=== PATIENT | female | born 1945 | race Caucasian/White ===

== ENCOUNTER 2018-05-26 14:55 | Inpatient (IN) | payer OTHER ==
[~2018-05-26] VITALS: Ht 152.4 cm; Wt 54.2 kg
[~2018-05-26 14:55] MED LIST: ALBU90OI6 INH; ASPI81EC PO; BENTYL20 MG PO; DICY20; FLUO20; FLUO20 PO; FLUO90 PO; HYDCOR2.5C PR; IBUP800 PO; PRED20 PO
[2018-05-26 15:59] LABS: BASOPHILS ABSOLUTE AUTO 0.02 K/mm3 (0.00-0.23); BASOPHILS PERCENT AUTO 0 % (0-2); EOSINOPHILS ABSOLUTE AUTO 0.04 K/mm3 (0.00-0.68); EOSINOPHILS PERCENT AUTO 0 % (0-6); Hematocrit 37.7 % (33.0-51.0); Hemoglobin 12.4 g/dL (11.5-16.0); IMMATURE GRAN ABSOLUTE AUTO 0.03 K/mm3 (0.00-0.10); IMMATURE GRAN PERCENT AUTO 0 % (0-1); LYMPHOCYTES ABSOLUTE AUTO 1.28 K/mm3 (0.84-5.20); LYMPHOCYTES PERCENT AUTO 13 % (21-46); MONOCYTES ABSOLUTE AUTO 0.81 K/mm3 (0.16-1.47); MONOCYTES PERCENT AUTO 8 % (4-13); Mean Corpuscular HGB Conc 32.9 g/dL (31.5-36.5); Mean Corpuscular Volume 88 fL (80-100); Mean Platelet Volume 11.3 fL (9.1-12.4); NEUTROPHILS ABSOLUTE AUTO 7.72 K/mm3 (1.96-9.15); NEUTROPHILS PERCENT AUTO 78 % (41-73); Platelet Count 308 K/mm3 (150-400); RDW Coefficient Variation 15.7 % (11.7-14.2); Red Blood Cell Count 4.27 M/mm3 (3.80-5.20)
[2018-05-26 16:18] LABS: Alanine Aminotransfer (ALT/SGP 17 U/L (12-78); Albumin, Blood 3.1 g/dL (3.4-5.0); Albumin/Globulin Ratio 0.8 (0.8-1.8); Alk Phos 105 U/L (50-136); Anion Gap 10 mmol/L (6-16); Aspartate Aminotrans (AST/SGOT 13 U/L (12-37); Bilirubin, Total 0.6 mg/dL (0.1-1.0); Blood Urea Nitrogen 12 mg/dL (8-24); Bun/Creatinine Ratio 19.9 (12.0-20.0); CO2, Blood 24 mmol/L (21-32); Calcium, Blood 8.4 mg/dL (8.5-10.1); Chloride, Blood 101 mmol/L (98-108); Globulin, Blood 3.8 g/dL (2.2-4.0); Glomerular Filtration Rate >60 (60-); Glucose, Blood 125 mg/dL (70-99); Potassium, Blood 3.1 mmol/L (3.5-5.5); Sodium, Blood 135 mmol/L (136-145); Total Protein, Blood 6.9 g/dL (6.4-8.2)
[2018-05-26] MEDS ORDERED: Protonix40 MG PO (17:16)
[2018-05-26] MEDS ORDERED: Dicyclomine HCl10 MG PO (17:16)
[2018-05-26] MEDS ORDERED: VARE1 PO (21:45)
[2018-05-26] MEDS ORDERED: BUPR75 PO (21:47)
[2018-05-27 04:38] LABS: BASOPHILS ABSOLUTE AUTO 0.02 K/mm3 (0.00-0.23); BASOPHILS PERCENT AUTO 0 % (0-2); EOSINOPHILS ABSOLUTE AUTO 0.07 K/mm3 (0.00-0.68); EOSINOPHILS PERCENT AUTO 1 % (0-6); Hematocrit 35.2 % (33.0-51.0); Hemoglobin 11.5 g/dL (11.5-16.0); IMMATURE GRAN ABSOLUTE AUTO 0.02 K/mm3 (0.00-0.10); IMMATURE GRAN PERCENT AUTO 0 % (0-1); LYMPHOCYTES PERCENT AUTO 19 % (21-46); MONOCYTES ABSOLUTE AUTO 0.88 K/mm3 (0.16-1.47); MONOCYTES PERCENT AUTO 11 % (4-13); Mean Corpuscular HGB 28.9 pg (26.0-34.0); Mean Corpuscular HGB Conc 32.7 g/dL (31.5-36.5); Mean Corpuscular Volume 88 fL (80-100); Mean Platelet Volume 11.3 fL (9.1-12.4); NEUTROPHILS ABSOLUTE AUTO 5.35 K/mm3 (1.96-9.15); NEUTROPHILS PERCENT AUTO 68 % (41-73); Platelet Count 270 K/mm3 (150-400); RDW Coefficient Variation 15.7 % (11.7-14.2); RDW Standard Deviation 51.2 fL (35.1-46.3); Red Blood Cell Count 3.98 M/mm3 (3.80-5.20); White Blood Cell Count 7.84 K/mm3 (4.00-11.30)
[2018-05-27 05:02] LABS: Anion Gap 8 mmol/L (6-16); Blood Urea Nitrogen 7 mg/dL (8-24); CO2, Blood 26 mmol/L (21-32); Calcium, Blood 7.8 mg/dL (8.5-10.1); Chloride, Blood 108 mmol/L (98-108); Creatinine, Blood 0.54 mg/dL (0.40-1.00); Glomerular Filtration Rate >60 (60-); Glucose, Blood 86 mg/dL (70-99); Potassium, Blood 3.4 mmol/L (3.5-5.5); Sodium, Blood 142 mmol/L (136-145)
[2018-05-27 08:24] LABS: Adenovirus F 40/41 Not Detected (NOT DETECT); Astrovirus Not Detected (NOT DETECT); Campylobacter Sp Not Detected (NOT DETECT); Cryptosporidium Not Detected (NOT DETECT); Cyclospora Cayetanensis Not Detected (NOT DETECT); E. Coli O157 Not Detected (NOT DETECT); Entamoeba Histolytica Not Detected (NOT DETECT); Enteroaggregative E. coli-EAEC Not Detected (NOT DETECT); Enteropathogenic E. coli-EPEC Not Detected (NOT DETECT); Enterotoxigenic E. coli-ETEC Not Detected (NOT DETECT); Giardia Lamblia Not Detected (NOT DETECT); Norovirus GI/GII Not Detected (NOT DETECT); Plesiomonas Shigelloides Not Detected (NOT DETECT); Rotavirus A Not Detected (NOT DETECT); Salmonella Sp Not Detected (NOT DETECT); Sapovirus Not Detected (NOT DETECT); Shiga Toxin-prod E. coli-STEC Not Detected (NOT DETECT); Shigella/Enteroin E. coli-EIEC Not Detected (NOT DETECT); Vibrio Cholerae Not Detected (NOT DETECT); Vibrio Sp Not Detected (NOT DETECT); Yersinia Enterocolitica Not Detected (NOT DETECT)
[2018-05-28 04:59] LABS: BASOPHILS ABSOLUTE AUTO 0.02 K/mm3 (0.00-0.23); BASOPHILS PERCENT AUTO 0 % (0-2); EOSINOPHILS ABSOLUTE AUTO 0.01 K/mm3 (0.00-0.68); EOSINOPHILS PERCENT AUTO 0 % (0-6); Hematocrit 35.4 % (33.0-51.0); Hemoglobin 11.5 g/dL (11.5-16.0); IMMATURE GRAN ABSOLUTE AUTO 0.06 K/mm3 (0.00-0.10); IMMATURE GRAN PERCENT AUTO 0 % (0-1); LYMPHOCYTES ABSOLUTE AUTO 1.95 K/mm3 (0.84-5.20); LYMPHOCYTES PERCENT AUTO 14 % (21-46); MONOCYTES ABSOLUTE AUTO 1.24 K/mm3 (0.16-1.47); MONOCYTES PERCENT AUTO 9 % (4-13); Mean Corpuscular HGB Conc 32.5 g/dL (31.5-36.5); Mean Corpuscular Volume 89 fL (80-100); Mean Platelet Volume 11.3 fL (9.1-12.4); NEUTROPHILS ABSOLUTE AUTO 10.73 K/mm3 (1.96-9.15); NEUTROPHILS PERCENT AUTO 77 % (41-73); Platelet Count 296 K/mm3 (150-400); RDW Coefficient Variation 15.8 % (11.7-14.2); RDW Standard Deviation 52.1 fL (35.1-46.3); Red Blood Cell Count 3.96 M/mm3 (3.80-5.20); White Blood Cell Count 14.01 K/mm3 (4.00-11.30)
[2018-05-28 05:15] LABS: Albumin, Blood 2.6 g/dL (3.4-5.0); Anion Gap 13 mmol/L (6-16); Blood Urea Nitrogen 6 mg/dL (8-24); Bun/Creatinine Ratio 11.3 (12.0-20.0); CO2, Blood 20 mmol/L (21-32); Calcium, Blood 7.6 mg/dL (8.5-10.1); Chloride, Blood 107 mmol/L (98-108); Creatinine, Blood 0.53 mg/dL (0.40-1.00); Glomerular Filtration Rate >60 (60-); Glucose, Blood 87 mg/dL (70-99); Phosphorus, Blood 2.5 mg/dL (2.5-4.9); Potassium, Blood 3.7 mmol/L (3.5-5.5); Sodium, Blood 140 mmol/L (136-145)
[2018-05-29 05:30] LABS: BASOPHILS ABSOLUTE AUTO 0.03 K/mm3 (0.00-0.23); BASOPHILS PERCENT AUTO 0 % (0-2); EOSINOPHILS ABSOLUTE AUTO 0.06 K/mm3 (0.00-0.68); EOSINOPHILS PERCENT AUTO 0 % (0-6); Hematocrit 34.2 % (33.0-51.0); Hemoglobin 11.3 g/dL (11.5-16.0); IMMATURE GRAN ABSOLUTE AUTO 0.09 K/mm3 (0.00-0.10); IMMATURE GRAN PERCENT AUTO 1 % (0-1); LYMPHOCYTES ABSOLUTE AUTO 1.69 K/mm3 (0.84-5.20); LYMPHOCYTES PERCENT AUTO 12 % (21-46); MONOCYTES ABSOLUTE AUTO 0.99 K/mm3 (0.16-1.47); MONOCYTES PERCENT AUTO 7 % (4-13); Mean Corpuscular HGB 29.5 pg (26.0-34.0); Mean Corpuscular Volume 89 fL (80-100); Mean Platelet Volume 11.4 fL (9.1-12.4); NEUTROPHILS ABSOLUTE AUTO 11.21 K/mm3 (1.96-9.15); NEUTROPHILS PERCENT AUTO 80 % (41-73); Platelet Count 296 K/mm3 (150-400); RDW Coefficient Variation 15.9 % (11.7-14.2); RDW Standard Deviation 52.1 fL (35.1-46.3); Red Blood Cell Count 3.83 M/mm3 (3.80-5.20); White Blood Cell Count 14.07 K/mm3 (4.00-11.30)
[2018-05-29 05:42] LABS: Albumin, Blood 2.4 g/dL (3.4-5.0); Anion Gap 9 mmol/L (6-16); Blood Urea Nitrogen 4 mg/dL (8-24); Bun/Creatinine Ratio 7.9 (12.0-20.0); CO2, Blood 23 mmol/L (21-32); Calcium, Blood 7.6 mg/dL (8.5-10.1); Chloride, Blood 107 mmol/L (98-108); Creatinine, Blood 0.51 mg/dL (0.40-1.00); Glomerular Filtration Rate >60 (60-); Glucose, Blood 85 mg/dL (70-99); Phosphorus, Blood 1.5 mg/dL (2.5-4.9); Potassium, Blood 3.6 mmol/L (3.5-5.5); Sodium, Blood 139 mmol/L (136-145)
[2018-05-30 04:52] LABS: BASOPHILS ABSOLUTE AUTO 0.02 K/mm3 (0.00-0.23); BASOPHILS PERCENT AUTO 0 % (0-2); EOSINOPHILS ABSOLUTE AUTO 0.11 K/mm3 (0.00-0.68); EOSINOPHILS PERCENT AUTO 1 % (0-6); Hematocrit 32.6 % (33.0-51.0); Hemoglobin 10.9 g/dL (11.5-16.0); IMMATURE GRAN ABSOLUTE AUTO 0.08 K/mm3 (0.00-0.10); IMMATURE GRAN PERCENT AUTO 1 % (0-1); LYMPHOCYTES ABSOLUTE AUTO 1.49 K/mm3 (0.84-5.20); LYMPHOCYTES PERCENT AUTO 11 % (21-46); MONOCYTES ABSOLUTE AUTO 0.95 K/mm3 (0.16-1.47); MONOCYTES PERCENT AUTO 7 % (4-13); Mean Corpuscular HGB 29.5 pg (26.0-34.0); Mean Corpuscular HGB Conc 33.4 g/dL (31.5-36.5); Mean Corpuscular Volume 88 fL (80-100); Mean Platelet Volume 11.5 fL (9.1-12.4); NEUTROPHILS ABSOLUTE AUTO 10.37 K/mm3 (1.96-9.15); NEUTROPHILS PERCENT AUTO 80 % (41-73); Platelet Count 289 K/mm3 (150-400); RDW Coefficient Variation 15.9 % (11.7-14.2); RDW Standard Deviation 51.8 fL (35.1-46.3); Red Blood Cell Count 3.69 M/mm3 (3.80-5.20); White Blood Cell Count 13.02 K/mm3 (4.00-11.30)
[2018-05-30 05:08] LABS: Albumin, Blood 2.2 g/dL (3.4-5.0); Anion Gap 7 mmol/L (6-16); Blood Urea Nitrogen 4 mg/dL (8-24); Bun/Creatinine Ratio 8.1 (12.0-20.0); CO2, Blood 27 mmol/L (21-32); Calcium, Blood 7.4 mg/dL (8.5-10.1); Chloride, Blood 105 mmol/L (98-108); Creatinine, Blood 0.49 mg/dL (0.40-1.00); Glomerular Filtration Rate >60 (60-); Glucose, Blood 109 mg/dL (70-99); Phosphorus, Blood 2.4 mg/dL (2.5-4.9); Potassium, Blood 3.1 mmol/L (3.5-5.5); Sodium, Blood 139 mmol/L (136-145)
[2018-05-30 11:44] LABS: Percent Saturation 8.1 % (15.0-50.0)
[2018-05-30 12:07] LABS: HEPATITIS C QUANTITATION HCV Not Detected IU/mL (.)
[2018-05-30 13:47] LABS: Albumin, Blood 2.4 g/dL (3.4-5.0); Anion Gap 9 mmol/L (6-16); Blood Urea Nitrogen 2 mg/dL (8-24); Bun/Creatinine Ratio 4.4 (12.0-20.0); CO2, Blood 26 mmol/L (21-32); Calcium, Blood 7.6 mg/dL (8.5-10.1); Chloride, Blood 104 mmol/L (98-108); Creatinine, Blood 0.45 mg/dL (0.40-1.00); Glomerular Filtration Rate >60 (60-); Glucose, Blood 106 mg/dL (70-99); Phosphorus, Blood 2.3 mg/dL (2.5-4.9); Sodium, Blood 139 mmol/L (136-145)
[2018-05-31 05:16] LABS: BASOPHILS ABSOLUTE AUTO 0.02 K/mm3 (0.00-0.23); BASOPHILS PERCENT AUTO 0 % (0-2); EOSINOPHILS ABSOLUTE AUTO 0.05 K/mm3 (0.00-0.68); EOSINOPHILS PERCENT AUTO 1 % (0-6); Hematocrit 31.5 % (33.0-51.0); Hemoglobin 10.3 g/dL (11.5-16.0); IMMATURE GRAN ABSOLUTE AUTO 0.07 K/mm3 (0.00-0.10); IMMATURE GRAN PERCENT AUTO 1 % (0-1); LYMPHOCYTES PERCENT AUTO 19 % (21-46); MONOCYTES ABSOLUTE AUTO 0.76 K/mm3 (0.16-1.47); MONOCYTES PERCENT AUTO 8 % (4-13); Mean Corpuscular HGB 29.2 pg (26.0-34.0); Mean Corpuscular HGB Conc 32.7 g/dL (31.5-36.5); Mean Corpuscular Volume 89 fL (80-100); Mean Platelet Volume 11.1 fL (9.1-12.4); NEUTROPHILS ABSOLUTE AUTO 7.23 K/mm3 (1.96-9.15); NEUTROPHILS PERCENT AUTO 72 % (41-73); Platelet Count 336 K/mm3 (150-400); RDW Coefficient Variation 16.4 % (11.7-14.2); RDW Standard Deviation 53.6 fL (35.1-46.3); Red Blood Cell Count 3.53 M/mm3 (3.80-5.20); White Blood Cell Count 10.03 K/mm3 (4.00-11.30)
[2018-05-31 05:25] LABS: Albumin, Blood 2.2 g/dL (3.4-5.0); Anion Gap 8 mmol/L (6-16); Blood Urea Nitrogen 4 mg/dL (8-24); Bun/Creatinine Ratio 7.4 (12.0-20.0); CO2, Blood 26 mmol/L (21-32); Calcium, Blood 7.5 mg/dL (8.5-10.1); Chloride, Blood 104 mmol/L (98-108); Creatinine, Blood 0.54 mg/dL (0.40-1.00); Glomerular Filtration Rate >60 (60-); Glucose, Blood 90 mg/dL (70-99); Phosphorus, Blood 2.8 mg/dL (2.5-4.9); Sodium, Blood 138 mmol/L (136-145)
[2018-05-31] MEDS ORDERED: POTCHL20ER PO (11:16)
[2018-05-31] MEDS ORDERED: SACC250C PO (11:17)
[2018-05-31] MEDS ORDERED: TRAM50 PO (11:17)
[2018-05-31] MEDS ORDERED: Vancocin HCL1000 M1 PO (11:18)
== END 2018-05-31 12:26 | disposition home or self-care (01) | DRG 372 ==
LOC: ER 14:55 → MEDS 18:24 → ENPENDDIS 05-31 10:30 → MEDS 05-31 12:26
PROVIDERS: Emergency Medicine; Family Medicine; Internal Medicine Gastroenterology; Nurse Practitioner Acute Care
DX: A04.72 Enterocolitis due to Clostridium difficile, not specified as recurrent (principal); K56.699 Other intestinal obstruction unspecified as to partial versus complete obstruction; Z87.891 Personal history of nicotine dependence; F32.9 Major depressive disorder, single episode, unspecified; Z87.440 Personal history of urinary (tract) infections; Z86.19 Personal history of other infectious and parasitic diseases; E87.6 Hypokalemia; R01.1 Cardiac murmur, unspecified; K21.9 Gastro-esophageal reflux disease without esophagitis; E83.39 Other disorders of phosphorus metabolism; D64.9 Anemia, unspecified; G47.00 Insomnia, unspecified; T40.2X5A Adverse effect of other opioids, initial encounter; Y92.239 Unspecified place in hospital as the place of occurrence of the external cause; B19.20 Unspecified viral hepatitis C without hepatic coma
CPT/HCPCS: 36415; 74177; 80048; 80053; 80069; 82607; 82728; 82746; 83540; 83550; 83690; 83735; 85025; 86140; 87507; 87522; 93306; 94640; 94760; 96365; 96375; 99285-25; C9113; J0694; J0697; J2405; J2765; J3010; J3480; J7040; Q9967

== ENCOUNTER 2019-01-17 09:09 | Emergency (ER) | payer OTHER ==
[~2019-01-17] VITALS: Ht 154.9 cm; Wt 52.6 kg
[~2019-01-17 09:09] MED LIST changes: +BUPR75 PO; +Dicyclomine HCl10 MG PO; -FLUO90 PO; +LOPE2C PO; +POTCHL20ER PO; +PROZAC20 MG PO; +Protonix40 MG PO; +SACC250C PO; +TERB250 PO; +TRAM50 PO; +VARE1 PO; +Vancocin HCL1000 M1 PO
[2019-01-17 10:14] LABS: Source, Urine Clean Catch
[2019-01-17 10:26] LABS: Bilirubin, Urine Neg (Neg); Blood, Urine 1+ (Neg); Glucose Qualitative, Urine Neg (Neg); Ketones, Urine Neg (Neg); Leukocyte Esterase, Urine 1+ (Neg); Nitrite, Urine Neg (Neg); Protein, Urine Neg (Neg); Urobilinogen, Urine NORM (Normal)
[2019-01-17 10:34] LABS: Appearance, Urine Hazy (Clear); Color, Urine Yellow (P-Yellow)
[2019-01-17 10:35] LABS: Bacteria Not Seen /hpf; Red Blood Cells, Urine 0-2 /hpf (0-2); Squamous Epithelial Cells Rare /hpf (Few); White Blood Cells, Urine 0-2 /hpf (0-5)
== END 2019-01-17 10:52 | disposition home or self-care (01) ==
LOC: ER 09:09
PROVIDERS: Emergency Medicine
DX: R30.0 Dysuria (principal); Z88.0 Allergy status to penicillin; Z87.891 Personal history of nicotine dependence
CPT/HCPCS: 81001; 87086; 99283

== ENCOUNTER 2019-04-17 05:52 | Inpatient (IN) | payer OTHER ==
[~2019-04-17] VITALS: Ht 149.9 cm; Wt 54.8 kg
--- NOTE | 2019-04-17 06:54 | NUR ---
Ambulatory in Day Surgery History, Chart, Medications and Allergies reviewed before start of procedure. Lungs clear T/O to Auscultation. Patient confirms NPO status and agrees with scheduled surgery.
--- NOTE | 2019-04-17 12:14 | NUR ---
1200-PT AGITATED. STATES SHE IS GOING TO THROW UP. ZOFRAN GIVEN. 1210-PT CONT TO WRITHE IN BED AND GRUNT. C/O ABD PAIN, BOLUS GIVEN WITH EPIDURAL. NO RELIEF, FENTANYL IVT. 1215-PT CALMER NOW.
--- NOTE | 2019-04-17 13:30 | NUR ---
pain control: PT WRITHING IN PAIN, GROANING AND GRUNTING. STATES EPIDERAL INEFFECTIVE. ANESTHESIA CONTACTED AND TITRATION ORDERS GIVEN. EPIDERAL CURRENTLY AT 10ML/HR. WILL MONITOR EFFECTIVENESS. KPAD OFFERED, PT DECLINED. WARM BLANKETS GIVEN. VISITORS AT BEDSIDE.
--- NOTE | 2019-04-17 17:41 | NUR ---
pt has been stable post op. vss. pt pain much better controlled with epideral rate at 10ml/hr. pt has sensation t/o but states that her pain is tolerable and she is able to rest. jacques ice chips well, may have clear liquids. provena cdi to mid abdomen. mcguire with 300cc sabrina urine. cont iv fluids as ordered. may sl when jacques po. pt has not been up oob yet but was encouraged to mobilize. pt having diarrhea post op, attends on for comfort. pas to ble. nausea and emesis x1 post op but resolved now. am labs to be drawn. call light used appropriately.
[2019-04-18 04:34] LABS: BASOPHILS ABSOLUTE AUTO 0.02 K/mm3 (0.00-0.23); BASOPHILS PERCENT AUTO 0 % (0-2); EOSINOPHILS PERCENT AUTO 0 % (0-6); Hematocrit 32.4 % (33.0-51.0); Hemoglobin 10.5 g/dL (11.5-16.0); IMMATURE GRAN ABSOLUTE AUTO 0.03 K/mm3 (0.00-0.10); IMMATURE GRAN PERCENT AUTO 0 % (0-1); LYMPHOCYTES PERCENT AUTO 11 % (21-46); MONOCYTES PERCENT AUTO 5 % (4-13); Mean Corpuscular HGB 29.7 pg (26.0-34.0); Mean Corpuscular HGB Conc 32.4 g/dL (31.5-36.5); Mean Corpuscular Volume 92 fL (80-100); Mean Platelet Volume 11.3 fL (9.1-12.4); NEUTROPHILS ABSOLUTE AUTO 7.96 K/mm3 (1.96-9.15); NEUTROPHILS PERCENT AUTO 83 % (41-73); Platelet Count 245 K/mm3 (150-400); RDW Coefficient Variation 16.1 % (11.7-14.2); RDW Standard Deviation 54.4 fL (35.1-46.3); Red Blood Cell Count 3.53 M/mm3 (3.80-5.20); White Blood Cell Count 9.61 K/mm3 (4.00-11.30)
[2019-04-18 04:52] LABS: Anion Gap 6 mmol/L (6-16); Blood Urea Nitrogen 9 mg/dL (8-24); Bun/Creatinine Ratio 15.4 (12.0-20.0); CO2, Blood 26 mmol/L (21-32); Calcium, Blood 7.6 mg/dL (8.5-10.1); Chloride, Blood 108 mmol/L (98-108); Creatinine, Blood 0.58 mg/dL (0.40-1.00); Glomerular Filtration Rate >60 (60-); Glucose, Blood 146 mg/dL (70-99); Potassium, Blood 3.6 mmol/L (3.5-5.5); Sodium, Blood 140 mmol/L (136-145)
--- NOTE | 2019-04-18 06:30 | NUR ---
PT REPOSITIONS WITH ASSIST. OLIVEIRA WITH BARELY OVER 300 ML WILL CONT TO MONITOR.IV FLUIDS INFUSING. TAKING SIPS THIS AM WITH PRILOSEC.PT RECEIVED ZOFRAN FOR REPORTED SYMPTOMS SIMILAR TO HER PREVIOUS HIATAL HERNIA. WITH VERBAL OF IMPROVEMENT. VERB PAIN ADEQUATELY CONTROLLED WITH EPIDURAL. SEE FLOW RECORDS.PT ABLE TO ASSIST WITH REPOSITIONING.
--- NOTE | 2019-04-18 09:47 | NUR ---
04/18/19 0947 Keila Floyd VERIFICATIONS: EDIT CHART.
--- NOTE | 2019-04-18 11:05 | NUR ---
IV LEVAQUIN STARTED AND AFTER ABOUT 5 MIN OF INFUSING, PT REPORTED ITCHING AT IV SITE AND ALONG SAME ARM. ANTIBIOTIC STOPPED AND IV FLUSHED. DR. BALL MADE AWARE, NO NEW ORDERS AT THIS TIME.
--- NOTE | 2019-04-18 11:16 | NUR ---
Patient is pleasant and talkative. 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 I listen empathically, encourage self care and provide spiritual guidance. Patient thanks me and asks that I use her story of victoy to help other gain confidence that the can over come as well.
--- NOTE | 2019-04-18 17:21 | NUR ---
SUMMARY: PT IS POD1 SIGMOID COLECTOMY. NO ACUTE CHANGE TODAY. VSS, A/O. Q1 HR EPIDURAL CHECKS COMPLETE AT 1230, NOW CHECKING Q4. EPIDURAL CHECKS HAVE BEEN WNL, PT REPORT PAIN IS WELL MANAGED, HAS RATED 0/10 ALL DAY. PT ABLE TO TRANSFER TO CHAIR TODAY FOR LUNCH AND DINNER. TOLERATING FULL LIQ DIET AT THIS TIME, DRINKING ENSURE. HAS DENIED NAUSEA, IS COMPLAINING OF ACID REFLUX. BROWN COW GIVEN. SURGICAL SITE WNL. NO SAFETY CONCERNS AT THIS TIME. WILL CTM AND REPORT TO COLIN FRANKEL.
--- NOTE | 2019-04-18 22:27 | NUR ---
FOUND PT STANDING NEXT TO CHAIR TANGLED IN CORDS. PT DID NOT CALL FOR HELP. TILE AND MARBLE SETTER HELPED PT TO BED AND PLACE BED ALARM ON.
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
--- NOTE | 2019-04-19 06:38 | NUR ---
SUMMARY PT CONT CONFUSED.ONLY 240ML OUT THIS SHIFT PER OLIVEIRA.DR BA AWARE WITH PRIOR CONVERSATION THAT PT REPORTS HAVING EMPHYSEMA, BUT I WEANED O2 SO FAR DOWN TO 2 L N/C. AT THIS TIME, I SPOKE WITH DR BA REGARDING CONTINUED CONFUSION AND DECREASED URINARY OUTPUT. ORDERED CBC,BMP,AND ABG.
[2019-04-19 06:55] LABS: PCO2 Arterial 42.4 mmHg (35-45); PO2 Arterial 63.1 mmHg (80-100); pH Blood Arterial 7.44 (7.35-7.45)
[2019-04-19 07:03] LABS: BASOPHILS ABSOLUTE AUTO 0.01 K/mm3 (0.00-0.23); BASOPHILS PERCENT AUTO 0 % (0-2); EOSINOPHILS ABSOLUTE AUTO 0.02 K/mm3 (0.00-0.68); EOSINOPHILS PERCENT AUTO 0 % (0-6); Hemoglobin 10.1 g/dL (11.5-16.0); IMMATURE GRAN ABSOLUTE AUTO 0.03 K/mm3 (0.00-0.10); IMMATURE GRAN PERCENT AUTO 0 % (0-1); LYMPHOCYTES ABSOLUTE AUTO 0.79 K/mm3 (0.84-5.20); LYMPHOCYTES PERCENT AUTO 8 % (21-46); MONOCYTES ABSOLUTE AUTO 0.49 K/mm3 (0.16-1.47); MONOCYTES PERCENT AUTO 5 % (4-13); Mean Corpuscular HGB 30.1 pg (26.0-34.0); Mean Corpuscular HGB Conc 32.6 g/dL (31.5-36.5); Mean Corpuscular Volume 92 fL (80-100); Mean Platelet Volume 11.5 fL (9.1-12.4); NEUTROPHILS ABSOLUTE AUTO 8.71 K/mm3 (1.96-9.15); NEUTROPHILS PERCENT AUTO 87 % (41-73); Platelet Count 209 K/mm3 (150-400); RDW Coefficient Variation 15.8 % (11.7-14.2); RDW Standard Deviation 53.9 fL (35.1-46.3); Red Blood Cell Count 3.36 M/mm3 (3.80-5.20); White Blood Cell Count 10.05 K/mm3 (4.00-11.30)
[2019-04-19 07:18] LABS: Anion Gap 6 mmol/L (6-16); Blood Urea Nitrogen 6 mg/dL (8-24); Bun/Creatinine Ratio 10.6 (12.0-20.0); CO2, Blood 28 mmol/L (21-32); Calcium, Blood 8.1 mg/dL (8.5-10.1); Chloride, Blood 105 mmol/L (98-108); Creatinine, Blood 0.56 mg/dL (0.40-1.00); Glomerular Filtration Rate >60 (60-); Glucose, Blood 120 mg/dL (70-99); Potassium, Blood 3.7 mmol/L (3.5-5.5); Sodium, Blood 139 mmol/L (136-145)
--- NOTE | 2019-04-19 13:17 | NUR ---
EPIDURAL CHECK AT 1240-UPON ASSESSMENT OF EPIDURAL SITE, THE DRESSING HAS ROLLED UP PT BACK AND A SMALL PART OF THE CATHETER IS UNCOVERED. SMALL AMOUNT OF WET AREA AT PT BACK. CATHETER IS NOT REMOVED, UNABLE TO ASSESS IF CATHETER CAME OUT SOME. [employer] SERVICES DISPATCHER CALLED TO ROOM AND SITE CLEANED WITH ALCOHOL SWABS AND THE DRESSING RE-INFORCED WITH NEW TEGADERM AND TAPE. DR. HINTON NOTIFIED OF THIS, NO NEW ORDERS. PT VSS AND DERMATONE CHECK UNCHAGED FROM LAST CHECK, PT RATES PAIN 0/10. WILL CTM PT STATUS.
--- NOTE | 2019-04-19 18:22 | NUR ---
SUMMARY: PT IS POD2 SIGMOID COLECTOMY. NO ACUTE CHANGE TODAY, PT A/O, FORGETFUL AT TIMES, BUT EASILY REORIENTED. PT HAS NOT ATTEMPTED OOB AND IS USING CALL LIGHT. BED ALARM ON FOR SAFETY. ABLE TO WEAN PT TO 1L, PT 87% ON RA. SEE PREVIOUS NOTE CONCERNING EPIDURAL 1630 CHECK WNL. PT DENIES PAIN. PT COMPLAINED OF NAUSEA AND "UP SET STOMACH" AT ABOUT 1720. UPON ASSESSMENT ABD SEEMS MORE DISTENDED THAN THIS AM. PT DENIES PASSING GAS, HAS TOLERATED FULL LIQ DIET FOR BREAKFAST AND LUNCH. DR. BALL CALLED AT 1725 TO MAKE AWARE, NO NEW ORDERS AT THIS TIME. SURGICAL SITE WNL, OLIVEIRA DRAINING GOOD OUTPUT. PT UP TO CHAIR AND WALKED IN ROOM. SALINE LOCKED. PLAN IS TO DC EPIDURAL TOMORROW, WILL MAKE NOC RN AWARE.
--- NOTE | 2019-04-20 06:20 | NUR ---
SHIFT SUMMARY PT POD#3. CONFUSED AT TIMES T/O NIGHT/COOPERATIVE. DISCOMFORT CONTROLLED WITH EPIDURAL. NO NAUSEA/EMESIS. ABD INCISION WITH PREVENA C/D/I. PT SBA UP TO AMBULATE IN ROOM + OUT IN HALLS X2 THIS SHIFT, TOLERATED WELL. EPIDURAL TO BE DC'D THIS AM, LOVENOX HELD THIS AM. PT RESTING AT THIS TIME. BED ALARM ON FOR SAFETY. CALL LIGHT IN REACH.
--- NOTE | 2019-04-20 08:13 | NUR ---
PT LEFT ROOM TO GO OR FOR SURGERY
--- NOTE | 2019-04-20 17:07 | NUR ---
SHIFT SUMMARY POD3 COLECTOMY MIDLINE PREVENA. EPIDURAL OUT AT 1200. OLIVEIRA OUT AT 1800, AWAITING POST-VOID. PAIN MANAGED WITH 5 MG NORCO. ABDULAZIZ SMALL AMT PO CLEAR LIQ TODAY; DENIES N&V. AMB W/FWW & GB IN ROOM AND IN HALLWAY, ABDULAZIZ WELL. UP TO CHAIR THIS SHIFT. DENIES PASSING FLATUS; REP BURPING. TCDB & I.S. EDU & ENC; PT ON RA T/O SHIFT WITH REMINDERS TO DO PULMONARY EXERCISES. WCTM & TX PER EMAR UNTIL REPORT GIVEN TO ONCOMING NOC RN.
--- NOTE | 2019-04-21 05:59 | NUR ---
SHIFT SUMMARY PT POD#4 SIGMOID COLECTOMY. AAOX4/COOPERATIVE. DISCOMFORT CONTROLLED WITH 1 PAIN PILL X1 THIS SHIFT, NO NAUSEA/EMESIS. ABD INCISION WITH PREVENA C/D/I, FOAM COMPRESSED WITH NO DRAINAGE. PT UP TO RESTROOM SBA WITH FWW. TOLERATING SIPS CLEARS. GOOD URINE OUTPUT WITH SMALL FIRM BROWN STOOL THIS AM + MODERATE AMOUNTS OF FLATUS. PT RESTING AT THIS TIME. BED ALARM ON FOR SAFETY + CALL LIGHT IN REACH.
--- NOTE | 2019-04-21 20:27 | NUR ---
SHIFT SUMMARY PT A&OX4, VSS, POD4 COLECTOMY, PREVENA MIDLINE, PASSING FLATUS AND BM. PAIN MANAGED WITH 5 MG OXY PRN. ABDULAZIZ PO REG DIET, DENIES N&V. AMB W/FWW TO [facility] AND HALLWAY; UP TO CHAIR T/O SHIFT. REPORT GIVEN TO DEEP FRANKEL.
--- NOTE | 2019-04-21 22:44 | NUR ---
1929 PATIENT RECIEVED PO PAIN MEDICATIONS AT THE BEGINNING OF THE SHIFT, WITH GOOD RESULTS. REORIENTED PATIENT TO THE DATE AND DAY OF THE WEEK. PATIENT STATED THAT SHE HAD A VERY SMALL BM THIS MORNING, AND REQUESTED STOOL SOFTENER. PATIENT AGREED TO TRY PRUNE JUICE. 2255- PATIENT HAS BEEN SLEEPING IN THE RECLINER FOR THE PAST 2-3 HOURS. CALL LIGHT IN REACH, TAB ALARM ON.
--- NOTE | 2019-04-22 04:57 | NUR ---
Patient has used the call light appropriately everytime that she needed to get up and go to Bathroom. She has been alert and aware throughout the shift. No acute pain after the [place] given at the beginning of the shift. She has had gas resulting in belching. The has walked around the surgical loop 4 times tonight with the FWW, gait belt and one person assist, without issue.
--- NOTE | 2019-04-22 16:29 | NUR ---
SUMMARY: PT IS POD4 SIGMOID COLECTOMY. NO ACUTE CHANGE TODAY. VSS, A/O. PT REPORTS "NOT FEELING WELL TODAY" AND "QWEEZY". PT HAS HAD DECREASED APPITETE. NO EMESIS, GIVEN ZOFRAN X1. PT ABLE TO WALK IN [place] AND UP TO CHAIR FOR MEALS, OTHERWISE PT RESTED. + FLATUS, NO BM TODAY. SURGICAL SITE WNL. WILL CTM AND REPORT TO NOC RN
--- NOTE | 2019-04-23 18:55 | NUR ---
SUMMARY OOB TO CHAIR TO MEALS AND MOST OF THE DAY, AMBULATED DOWN THE HALLS, PASSING FLATUS, TOLERATING SMALL AMOUNTS OF REGULAR FOOD, PT STATES SHE HAS NO APPETITE, DENIES ANY NAUSEA, DSG C/D/I, NO ACUTE CHANGES THIS SHIFT.
--- NOTE | 2019-04-24 07:35 | NUR ---
SHIFT SUMMARY: PT POD#7 FOR SIGMOID COLECTOMY. PAIN MANAGED WITH 2 NORCO. MEDICATED ONCE THIS SHIFT. AMBULATING INDEPENDENTLY IN ROOM. VOIDING WELL. PASSING FLATUS. PT REPORTS BM YESTERDAY. MIDLINE PREVINA INTACT WITH FOAM COMPRESSED. PLAN FOR POSSIBLE DISCHARGE TODAY.
[2019-04-24] MEDS ORDERED: HYDR1TAB94 PO (15:28)
--- NOTE | 2019-04-24 15:41 | NUR ---
DISCHARGE PT EDUCATED ON AND RECEIVED PRINTED DC INSTRUCTIONS AND VERB AN UNDERSTANDING. HARD RX FOR NORCO GIVEN TO PT. DR. BALL DC'D PREVENA WOUND VAC. IV DC'D. PT GATHERING ALL PERSONAL BELONGINGS AND WAITING FOR FRIEND TO COME PICK HER UP TO TAKE HER HOME.
== END 2019-04-24 16:18 | disposition home or self-care (01) | DRG 330 ==
LOC: SURS 05:52 → PRE IP 07:30 → SURS 12:32
PROVIDERS: Surgery; ADMIT Surgery
PROC: 0DTN0ZZ Resection of Sigmoid Colon, Open Approach (ICD-10-PCS; principal; 2019-04-17 07:30)
DX: K56.609 Unspecified intestinal obstruction, unspecified as to partial versus complete obstruction (principal); K57.32 Diverticulitis of large intestine without perforation or abscess without bleeding; B19.20 Unspecified viral hepatitis C without hepatic coma; F32.9 Major depressive disorder, single episode, unspecified; I35.0 Nonrheumatic aortic (valve) stenosis; Z87.891 Personal history of nicotine dependence
CPT/HCPCS: 36415; 36600; 80048; 82803; 85025; 88307; A9270-GY; J0330; J0360; J1650; J1956; J2250; J2370; J2405; J2704; J3010; J7120; V2790

== ENCOUNTER → 2025-01-14 | Outpatient (CLI) | payer OTHER ==
[~2025-01-14] MED LIST changes: +HYDR1TAB94 PO
== END | disposition home or self-care (01) ==
LOC: LAB 15:03 → LAB SHORT 15:03
DX: R35.0 Frequency of micturition (principal)
CPT/HCPCS: 87077; 87086; 87186

== ENCOUNTER 2025-03-27 18:56 | Emergency (ER) | payer OTHER ==
[~2025-03-27] VITALS: Ht 157.5 cm; Wt 54.4 kg
[2025-03-27 19:24] LABS: BASOPHILS ABSOLUTE AUTO 0.04 K/mm3 (0.00-0.23); BASOPHILS PERCENT AUTO 1 % (0-2); EOSINOPHILS ABSOLUTE AUTO 0.18 K/mm3 (0.00-0.68); EOSINOPHILS PERCENT AUTO 2 % (0-6); Hematocrit 39.7 % (33.0-51.0); Hemoglobin 13.0 g/dL (11.5-16.0); IMMATURE GRAN ABSOLUTE AUTO 0.06 K/mm3 (0.00-0.10); IMMATURE GRAN PERCENT AUTO 1 % (0-1); LYMPHOCYTES ABSOLUTE AUTO 1.52 K/mm3 (0.84-5.20); LYMPHOCYTES PERCENT AUTO 18 % (21-46); MONOCYTES ABSOLUTE AUTO 0.62 K/mm3 (0.16-1.47); MONOCYTES PERCENT AUTO 7 % (4-13); Mean Corpuscular HGB Conc 32.7 g/dL (31.5-36.5); Mean Corpuscular Volume 90 fL (80-100); NEUTROPHILS ABSOLUTE AUTO 6.27 K/mm3 (1.96-9.15); NEUTROPHILS PERCENT AUTO 72 % (41-73); NRBC ABSOLUTE 0.00 K/mm3 (0.00-0.02); NRBC Auto 0.0 /100 WBC (0.0-0.2); Platelet Count 220 K/mm3 (150-400); RDW Coefficient Variation 15.5 % (11.7-14.2); RDW Standard Deviation 51.6 fL (35.1-46.3)
[2025-03-27 19:48] LABS: Alanine Aminotransfer (ALT/SGP 20.0 U/L (12-78); Albumin, Blood 3.6 g/dL (3.4-5.0); Albumin/Globulin Ratio 1.0 (0.8-1.8); Anion Gap 8.0 mmol/L (3-11); Aspartate Aminotrans (AST/SGOT 21.0 U/L (12-37); Bilirubin, Total 0.5 mg/dL (0.1-1.0); Blood Urea Nitrogen 20.0 mg/dL (8-24); CO2, Blood 27.0 mmol/L (21-32); Calcium, Blood 9.0 mg/dL (8.5-10.1); Chloride, Blood 107.0 mmol/L (98-108); Creatinine, Blood 0.72 mg/dL (0.40-1.00); Globulin, Blood 3.6 g/dL (2.2-4.0); Glucose, Blood 97.0 mg/dL (70-99); Potassium, Blood 4.1 mmol/L (3.5-5.5); Sodium, Blood 138.0 mmol/L (136-145); Total Protein, Blood 7.2 g/dL (6.4-8.2)
[2025-03-27 22:30] VITALS: BP 142/81
== END 2025-03-27 22:57 | disposition home or self-care (01) ==
LOC: ER 18:56
PROVIDERS: Emergency Medicine
DX: R55 Syncope and collapse (principal); S01.01XA Laceration without foreign body of scalp, initial encounter; S51.011A Laceration without foreign body of right elbow, initial encounter; R07.89 Other chest pain; J44.9 Chronic obstructive pulmonary disease, unspecified; Z90.49 Acquired absence of other specified parts of digestive tract; Z87.891 Personal history of nicotine dependence; Z88.0 Allergy status to penicillin; Z79.899 Other long term (current) drug therapy; W18.30XA Fall on same level, unspecified, initial encounter
CPT/HCPCS: 70450; 71045; 72125; 80053; 84484; 85025; 93005; 93010; 99285-25

== ENCOUNTER 2025-03-30 15:54 | Emergency (ER) | payer OTHER ==
[~2025-03-30] VITALS: Ht 152.4 cm; Wt 54.4 kg
[2025-03-30] MEDS ORDERED: Morphine Sulfate 4 MG/1 ML Injection IV ONE (16:20)
[2025-03-30 16:26] LABS: BASOPHILS ABSOLUTE AUTO 0.04 K/mm3 (0.00-0.23); BASOPHILS PERCENT AUTO 1 % (0-2); EOSINOPHILS ABSOLUTE AUTO 0.14 K/mm3 (0.00-0.68); EOSINOPHILS PERCENT AUTO 2 % (0-6); Hematocrit 41.1 % (33.0-51.0); Hemoglobin 13.1 g/dL (11.5-16.0); IMMATURE GRAN ABSOLUTE AUTO 0.02 K/mm3 (0.00-0.10); IMMATURE GRAN PERCENT AUTO 0 % (0-1); LYMPHOCYTES ABSOLUTE AUTO 1.28 K/mm3 (0.84-5.20); LYMPHOCYTES PERCENT AUTO 19 % (21-46); MONOCYTES ABSOLUTE AUTO 0.61 K/mm3 (0.16-1.47); MONOCYTES PERCENT AUTO 9 % (4-13); Mean Corpuscular HGB Conc 31.9 g/dL (31.5-36.5); Mean Corpuscular Volume 91 fL (80-100); NEUTROPHILS ABSOLUTE AUTO 4.50 K/mm3 (1.96-9.15); NEUTROPHILS PERCENT AUTO 68 % (41-73); NRBC ABSOLUTE 0.00 K/mm3 (0.00-0.02); NRBC Auto 0.0 /100 WBC (0.0-0.2); Platelet Count 251 K/mm3 (150-400); RDW Coefficient Variation 15.5 % (11.7-14.2); RDW Standard Deviation 51.9 fL (35.1-46.3)
[2025-03-30 16:57] LABS: Alanine Aminotransfer (ALT/SGP 20.0 U/L (12-78); Albumin, Blood 3.6 g/dL (3.4-5.0); Albumin/Globulin Ratio 1.0 (0.8-1.8); Anion Gap 8.0 mmol/L (3-11); Aspartate Aminotrans (AST/SGOT 19.0 U/L (12-37); Bilirubin, Total 0.5 mg/dL (0.1-1.0); Blood Urea Nitrogen 20.0 mg/dL (8-24); CO2, Blood 25.0 mmol/L (21-32); Calcium, Blood 9.0 mg/dL (8.5-10.1); Chloride, Blood 108.0 mmol/L (98-108); Creatinine, Blood 0.59 mg/dL (0.40-1.00); Globulin, Blood 3.6 g/dL (2.2-4.0); Glucose, Blood 107.0 mg/dL (70-99); Potassium, Blood 4.2 mmol/L (3.5-5.5); Sodium, Blood 137.0 mmol/L (136-145); Total Protein, Blood 7.2 g/dL (6.4-8.2)
[2025-03-30] MEDS ORDERED: NS 1,000 ML IV SCH (18:05)
[2025-03-30 21:01] LABS: Source, Urine Clean Catch
[2025-03-30 21:10] LABS: Bilirubin, Urine Neg (Neg); Glucose Qualitative, Urine Neg (Neg); Ketones, Urine Neg (Neg); Leukocyte Esterase, Urine 2+ (Neg); Protein, Urine 1+ (Neg); Specific Gravity, Urine 1.010 (1.003-1.022); Urobilinogen, Urine NORM (Normal)
[2025-03-30 21:17] LABS: Color, Urine Pale Yellow (P-Yellow)
[2025-03-30 21:18] LABS: Red Blood Cells, Urine 0-2 /hpf (0-2)
[2025-03-30] MEDS ORDERED: HYDR1TAB94 PO (21:25)
[2025-03-30] MEDS ORDERED: SULTRIDS PO (21:25)
[2025-03-30] MEDS ORDERED: TAMS.4ER PO (21:25)
[2025-03-30] MEDS ORDERED: Trimethoprim/Sulfamethoxazole DS Tab PO ONE (21:30)
[2025-03-30] MEDS ORDERED: RX Prepack 6 Tabs Oxycodone 5mg UD ONE (21:30)
[2025-03-30 22:06] VITALS: BP 139/74
== END 2025-03-30 22:14 | disposition home or self-care (01) ==
LOC: ER 15:54
PROVIDERS: Physician Assistant
DX: N20.0 Calculus of kidney (principal); N39.0 Urinary tract infection, site not specified; Z87.891 Personal history of nicotine dependence; J44.9 Chronic obstructive pulmonary disease, unspecified; Z79.899 Other long term (current) drug therapy; Z88.0 Allergy status to penicillin
CPT/HCPCS: 71046; 74177; 80053; 81001; 85025; 87077; 87086; 87186; 96361; 96374-59; 99284-25; A9270; J2270; J7030; Q9967